=== PATIENT | female | born 2000 | race Asian ===

== ENCOUNTER 2024-09-19 23:06 | Emergency (ER) | payer OTHER, SELFPAY ==
--- NOTE | ~2024-09-19 | XR_ITS ---
HISTORY: soccer injury COMPARISON: None TECHNIQUE: 3 views of the left ankle were performed FINDINGS: No acute fracture or dislocation. Lateral and anterior soft tissue swelling is present. The ankle mortise is preserved. Bone mineralization is age-appropriate. IMPRESSION: Anterolateral soft tissue swelling without acute fracture. Reviewed, dictated and finalized at location A.
[2024-09-19 23:07] VITALS: BP 131/75; PULSE 76; RESP 16; TEMP 36.6; O2SAT 100
[2024-09-19 23:26] VITALS: BP 124/76; PULSE 72; RESP 18; O2SAT 99
--- NOTE | 2024-09-20 00:32 | ED.LOWEXIN ---
HPI - Extremity Injury (Lower) General Chief Complaint: Extremity Injury, Lower Stated Complaint: left ankle injury Time Seen by Provider: 09/19/24 23:14 History of Present Illness HPI Narrative: Patient is a 24-year-old female who presents to the ER with left ankle pain. She reports she was playing soccer when she turned her foot and someone kicked/swiped the inside of her ankle. Patient reports she immediately experienced numbness go through her foot and she has had difficulty moving her left toes since due to pain. She endorses a history bilateral ACL tears, left knee MCL tear, and right meniscus tear. Patient endorses decreased range of motion due to pain. She denies any calf pain, sound of popping, or loss of sensation. Review of Systems Review of Systems: All systems reviewed & are unremarkable except as noted in HPI and below Exam Narrative: GENERAL: Well appearing, well-nourished, non-toxic, in no acute distress. HEAD: Normocephalic, atraumatic. NECK: Supple. No adenopathy, no masses. RESPIRATORY: Airway patent, respirations nonlabored. Clear to auscultation bilaterally, no rales, rhonchi, wheezing. CARDIOVASCULAR: Regular rate and rhythm without murmurs, rubs, or gallops. Peripheral pulses 2+ and equal bilaterally. ABDOMINAL: Soft, nontender, nondistended, no hepatosplenomegaly. Normoactive BS. MUSCULOSKELETAL: Moves all extremities. Strength/ROM intact except for LLE. LLE decreased ROM, + pedal pulse, + edema L inner and outer ankle and dorsal aspect SKIN: Warm, dry, normal color. No rashes. NEURO: A&O X3. Speech clear. Cranial nerves II-XII intact. No ataxic movements. PSYCHIATRIC: Tearful. Normal interaction. Course Vital Signs Vital signs: Vital Signs Temperature 36.6 C 09/19/24 23:07 Pulse Rate 76 09/19/24 23:07 Respiratory Rate 16 09/19/24 23:07 Blood Pressure 131/75 09/19/24 23:07 Pulse Oximetry 100 09/19/24 23:07 Oxygen Delivery Room Air 09/19/24 23:07 Temperature 36.6 C 09/19/24 23:07 Pulse Rate 102 H 09/20/24 00:45 Respiratory Rate 18 09/20/24 00:45 Blood Pressure 116/68 09/20/24 00:45 Pulse Oximetry 100 09/20/24 00:45 Oxygen Delivery Room Air 09/19/24 23:07 MDM - Extremity Injury (Lower) MDM Narrative Medical decision making narrative: Patient is a 24-year-old female who presents to the ER with left ankle pain. She reports she was playing soccer when she turned her foot and someone kicked/swiped the inside of her ankle. Patient reports she immediately experienced numbness go through her foot and she has had difficulty moving her left toes since due to pain. She endorses a history bilateral ACL tears, left knee MCL tear, and right meniscus tear. Patient endorses decreased range of motion due to pain. She denies any calf pain, sound of popping, or loss of sensation. Imaging Ordered: Left ankle x-ray Medications Ordered: Ibuprofen 800 mg p.o. Results: Pt's L ankle x-ray indicates No acute fracture or dislocation. Lateral and anterior soft tissue swelling is present. The ankle mortise is preserved. Bone mineralization is age-appropriate. Diagnosis: L ankle sprain, L ankle swelling Consults: orthopedics (outpatient) or podiatry (outpatient) Patient Education/Shared MDM: Results of imaging shared with patient. It was explained to pt that she doesn't have a fracture in her foot, but with her pain and swelling it is recommended she has an OCL placed to help support her ankle until she can see orthopedics or podiatrics. She endorses improvement of symptoms following medication administration. Patient strongly advised to maintain hydration status upon discharge and follow-up with orthopedics or podiatrics as soon as possible. She will be discharged home with a prescription for Ibuprofen 800mg. Strict return precautions provided. Patient verbalized understanding and is in agreement with plan. Vital signs stable at time of discharge. All questions answered. Differential Diagnosis Differential diagnosis: Likely ankle sprain and strain, ankle fracture and other (ankle hematoma) Imaging Data Attestation: I personally reviewed and interpreted this imaging study as follows: Radiologist's impression: Impressions Ankle X-Ray 09/19/24 23:59 IMPRESSION: Anterolateral soft tissue swelling without acute fracture. Discharge Plan Discharge Clinical Impression: Ankle sprain and strain, Acute left ankle pain, Left ankle swelling Patient Disposition: Home Condition: Stable Instructions: Antibiotic Form Additional Instructions: Please return to the ER with any worsening symptoms. Follow-up with orthopedics or podiatrics as soon as possible. You may take ibuprofen 800 mg and Tylenol as needed for pain control. Please keep your left ankle elevated when possible. Patient Language: Portuguese Prescriptions: New ibuprofen 800 mg tablet 800 mg PO TID PRN (Reason: pain) Qty: 30 0RF Follow-up/Referrals: Moustapha Chin DPM [Physician] - (podiatry) Curtis Salas MD [Physician] - (orthopedic surgery) Boogie,MD Umang [Primary Care Provider] - Stand Alone Forms: Work/School Release IP Time of Disposition: 01:35
[2024-09-20 00:45] VITALS: BP 116/68; PULSE 102; RESP 18; O2SAT 100
[2024-09-20] MEDS: IBUPROFEN 400 MG TABLET 800 MG PO (00:45)
[2024-09-20 01:39] VITALS: BP 111/74; PULSE 66; RESP 18; O2SAT 99
== END 2024-09-20 01:40 | disposition home or self-care (01) ==
PROVIDERS: Emergency Provider Registered Nurse; PCP Family Medicine
DX: S93.402A Sprain of unspecified ligament of left ankle, initial encounter (principal); S96.912A Strain of unspecified muscle and tendon at ankle and foot level, left foot, initial encounter; W51.XXXA Accidental striking against or bumped into by another person, initial encounter; Y93.66 Activity, soccer
CPT/HCPCS: 29515; 73610; 99283; A9270